=== PATIENT | male | born 2000 | race Caucasian/White ===

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

== ENCOUNTER 2019-05-10 23:36 | Emergency (ER) | payer BC, OTHER ==
[2019-05-10 23:44] VITALS: RESP 18
--- NOTE | 2019-05-11 02:32 | ED ---
ENT HPI - General Chief complaint: ENT Stated complaint: Sore throat Time Seen by Provider: 05/11/19 00:01 Source: patient Mode of arrival: ambulatory Limitations: no limitations - History of Present Illness Initial comments: 18-year-old male patient presents to the emergency department today for evaluation of sore throat. Patient states he's had sore throat for the last 5 days. Patient states he has tried multiple teas and supplements without relief. Denies any nasal congestion or cough. Denies any fever or chills with this. Denies any abdominal pain, nausea, or vomiting. Patient denies any recent rash, shortness breath, chest pain, diarrhea, constipation, back pain, numbness, tingling, dizziness, weakness, hematuria, dysuria, urinary urgency, urinary frequency, headache, visual changes, or any other complaints. - Related Data Allergies Allergy/AdvReac Type Severity Reaction Status Date / Time No Known Allergies Allergy Verified 05/10/19 23:43 Review of Systems ROS Statement: Those systems with pertinent positive or pertinent negative responses have been documented in the HPI. ROS Other: All systems not noted in ROS Statement are negative. Past Medical History Past Medical History: No Reported History History of Any Multi-Drug Resistant Organisms: None Reported Additional Past Surgical History / Comment(s): left hand surgery Past Psychological History: Anxiety, Bipolar, Depression Smoking Status: Never smoker Past Alcohol Use History: None Reported Past Drug Use History: None Reported General Exam Limitations: no limitations General appearance: alert, in no apparent distress, other (This is a well- developed, well-nourished adult male patient in no acute distress. Vital signs upon presentation are temperature 98.3F, pulse 69, respirations 18, blood pressure 148/96, pulse ox 98% on room air.) Eye exam: Present: normal appearance, PERRL, EOMI. Absent: scleral icterus, conjunctival injection, periorbital swelling ENT exam: Present: mucous membranes moist. Absent: normal exam, normal oropharynx (Pharyngeal erythema) Neck exam: Present: normal inspection. Absent: tenderness, meningismus, lymphadenopathy Respiratory exam: Present: normal lung sounds bilaterally. Absent: respiratory distress, wheezes, rales, rhonchi, stridor Cardiovascular Exam: Present: regular rate, normal rhythm, normal heart sounds. Absent: systolic murmur, diastolic murmur, rubs, gallop, clicks GI/Abdominal exam: Present: soft, normal bowel sounds. Absent: distended, tenderness, guarding, rebound, rigid Neurological exam: Present: alert, oriented X3, CN II-XII intact Psychiatric exam: Present: normal affect, normal mood Skin exam: Present: warm, dry, intact, normal color. Absent: rash Course Vital Signs 05/10/19 05/11/19 23:40 02:49 Temperature 98.3 F 98 F Pulse Rate 69 64 Respiratory 18 18 Rate Blood Pressure 148/96 142/85 O2 Sat by Pulse 98 99 Oximetry Medical Decision Making - Medical Decision Making 18-year-old male patient presents to the emergency department today for evaluation of sore throat. Physical examination did reveal pharyngeal erythema. There is no tonsillar hypertrophy or exudate. No lymphadenopathy. He is afebrile with normal vital signs. Strep and heterophile are negative. We did discuss his symptoms are most likely related to a viral illness. We'll be discharged to follow-up with his primary care physician. Return parameters were discussed in detail. He verbalizes understanding and agrees this plan. - Lab Data Lab Results 05/11/19 05/11/19 Range/Units 00:51 02:24 Heterophile Antibody Negative (Negative) Group A Strep Rapid Negative (Negative) Disposition Clinical Impression: Pharyngitis Disposition: HOME SELF-CARE Condition: Good Instructions (If sedation given, give patient instructions): Pharyngitis (ED) Additional Instructions: Increase fluids. Use anti-inflammatory medication such as ibuprofen or Advil for pain control. Follow-up with your primary care physician for recheck in 1-2 days. Await mono results. Return to the emergency department immediately for any new, worsening, or concerning symptoms. Is patient prescribed a controlled substance at d/c from ED?: No Referrals: Mady Kuo MD [Primary Care Provider] - 1-2 days Time of Disposition: 02:32
[2019-05-11 02:49] VITALS: BP 142/85; PULSE 64; TEMP 98
== END 2019-05-11 02:50 | disposition home or self-care (01) ==
LOC: EC 23:36
DX: J02.9 Acute pharyngitis, unspecified (principal)
CPT/HCPCS: 36415; 86308; 87081; 87430; 99283